=== PATIENT | female | born 1970 | race Caucasian/White ===

== ENCOUNTER → 2019-08-03 | Outpatient (CLI) | payer BC ==
--- NOTE | 2019-08-03 17:48 | KCIC ---
EXAM: Lumbar spine, 5 views. HISTORY: Pain. COMPARISON: None. FINDINGS: 5 views of the lumbar spine are obtained. There is mild lumbar scoliosis. There is no listhesis. There is endplate remodeling at multiple levels. There is disc space narrowing at L5-S1. There are few endplate Schmorl's nodes. IMPRESSION: 1. Degenerative change primarily at L5-S1. 2. No acute osseous finding. Electronically signed by: Sarah Godfrey MD (08/03/2019 5:45 PM) [id number]
== END | disposition home or self-care (01) ==
LOC: KCIC 16:11
PROVIDERS: ATTEND Internal Medicine
DX: M47.817 Spondylosis without myelopathy or radiculopathy, lumbosacral region (principal); M48.07 Spinal stenosis, lumbosacral region; M41.86 Other forms of scoliosis, lumbar region
CPT/HCPCS: 72110

== ENCOUNTER → 2020-04-11 | Outpatient (CLI) | payer BC ==
--- NOTE | 2020-04-11 11:44 | KCIC ---
EXAMINATION: ESOPHAGRAM/BARIUM SWALLOW (ESOPHAGRAM) CLINICAL HISTORY: Gastroesophageal reflux and chest pain x2.5 months Technique: Double contrast esophagram performed utilizing effervescent granules followed by oral administration of thick and thin barium. - Number of Images: 10 - Fluoroscopy Time: 53 seconds Comparison: 03/11/2015 FINDINGS: Hypopharynx and cervical esophagus unremarkable. No evidence of esophageal stricture, ring, or mass. No evidence of esophagitis. No hiatal hernia. No reflux elicited despite provocative maneuvers. Esophageal motility within normal limits. IMPRESSION: Unremarkable esophagram. Electronically signed by: Tomas Kong DO (04/11/2020 11:41 AM) [id number]
== END ==
LOC: KCIC 10:00
PROVIDERS: ATTEND Internal Medicine Gastroenterology
DX: K21.9 Gastro-esophageal reflux disease without esophagitis (principal); R07.9 Chest pain, unspecified
CPT/HCPCS: 74220

== ENCOUNTER → 2020-04-11 | Outpatient (CLI) | payer BC ==
--- NOTE | 2020-04-11 10:02 | KCIC ---
Bilateral digital screening mammograms: Reason for examination: Routine screening. Comparison is made to previous study dated 01/19/2015. Interpretation was made with the benefit of CAD. The skin and nipples show no abnormalities. No abnormal axillary lymph nodes are seen. The breast parenchyma is heterogeneously dense. (Breast density: Category C.) There are no dominant masses, suspicious calcifications or architectural distortion. Impression: No evidence of malignancy. Recommend routine screening. Your patient's mammogram demonstrates that she has dense breast tissue (breast density category C or D), which could hide abnormalities, and if she has other risk factors for breast cancer that have been identified, she might benefit from supplemental screening tests that may be suggested by you as her ordering physician. Dense breast tissue, in and of itself, is a relatively common condition. Therefore, this information is not provided to cause undue concern, but rather to raise your awareness and to promote discussion with your patient regarding the presence of other risk factors, in addition to dense breast tissue. Your patient's mammography results will be sent to her. BI-RAD Category 1: Negative. "Our facility is accredited by the [employer] Mammography [employer]." This patient's information has been entered into a reminder system for the patient to be notified with the results of her examination and a target date for the next mammogram. Electronically signed by: Tammy Og MD (04/11/2020 9:59 AM) [id number]
== END ==
LOC: KCIC MAMMO 08:56
PROVIDERS: ATTEND Internal Medicine
DX: Z12.31 Encounter for screening mammogram for malignant neoplasm of breast (principal)
CPT/HCPCS: 77067

== ENCOUNTER → 2020-04-26 | Outpatient (CLI) | payer BC ==
--- NOTE | 2020-04-26 09:31 | RAD ---
Examination: Ultrasound abdomen complete HISTORY: History of pain, reflux COMPARISON: 03/31/2015 FINDINGS: The visualized pancreas grossly appears unremarkable. The aorta, IVC are not well-visualized due to bowel gas No evidence of gallstones identified. The gallbladder wall thickness measures 2.6 mm. The liver length measures 15.5 cm. Mild increased echogenicity identified in the liver likely hepatic steatosis. The right kidney measures 10.5 x 4.4 x 4.2 cm. The left kidney measures 9.3 x 4.9 x 4.7 cm. The spleen is within normal limits IMPRESSION: 1. Mild hepatic steatosis. 2. No evidence of gallstones. Electronically signed by: All Archer MD (04/26/2020 9:27 AM) [id number]
== END ==
LOC: US 08:08
PROVIDERS: ATTEND Internal Medicine Gastroenterology
DX: K76.0 Fatty (change of) liver, not elsewhere classified (principal); K21.9 Gastro-esophageal reflux disease without esophagitis
CPT/HCPCS: 76700